=== PATIENT | female | born 1950 | race Caucasian/White ===

== ENCOUNTER 2018-02-28 05:33 | Day surgery (SDC) | payer MEDICARE, OTHER ==
[2018-02-27 18:12] VITALS: BMI 32.1
[2018-02-28] MEDS ORDERED: Lidocaine 1% (PF) 30 ML VIAL ONE (06:39)
[2018-02-28 06:52] LABS: #Eosinphils 0.2 thou/uL (0.0-0.7); #Monocytes 0.4 thou/uL (0.11-0.59); #Neutrophils 3.4 thou/uL (1.40-6.50); %Basophils 0.7 % (0.0-1.0); %Eosinophils 3.3 % (0.0-10.0); %Lymphocytes 19.9 % (21.0-51.0); %Monocytes 7.6 % (0.0-10.0); %Neutrophils 68.4 % (42.0-75.0); Hemoglobin 12.7 g/dL (12.0-16.0); Mean Corpuscular HGB CONC 34.3 g/dL (32.0-36.0); Mean Corpuscular Hemoglobin 29.2 pg (27.0-31.0); Mean Corpuscular Volume 85.2 fl (81.0-99.0); Mean Platelet Volume 6.7 fL (7.4-10.4); Platelet Count 213 thou/uL (130-400); RBC Distribution Width 13.7 % (11.5-14.5); Red Blood Cell (RBC) Count 4.36 mill/uL (4.20-5.40)
[2018-02-28 07:13] LABS: Anion Gap 10 mmol/L (10-20); BUN (Urea Nitrogen) 17 mg/dL (9.8-20.1); Calc. Creatinine Clearance 108 mL/min (70-130); Calcium 10.6 mg/dL (7.8-10.44); Carbon Dioxide 29 mmol/L (23-31); Chloride 105 mmol/L (98-107); Estimated GFR-MDRD 79; Glucose 113 mg/dL (80-115); Potassium 4.1 mmol/L (3.5-5.1); Sodium 140 mmol/L (136-145)
[2018-02-28] MEDS ORDERED: Heparin 10,000 UNITS/1 ML VIAL ONE (08:21)
[2018-02-28] MEDS ORDERED: Protamine Sulfate 50 MG/5 ML VIAL ONE (08:24)
[2018-02-28] MEDS ORDERED: Clopidogrel Bisulfate 75 MG TAB ONE (09:14)
--- NOTE | 2018-03-01 09:18 | OP ---
DATE OF PROCEDURE: 02/28/2018 PREOPERATIVE DIAGNOSIS: Claudication of right hip. 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 PROCEDURE: Aortofemoral angiography, right lower extremity runoff, balloon angioplasty of both common iliac arteries 8 x 17 and Express stent, right common iliac artery. CONTRAST: 38 mL. FLUOROSCOPY TIME: 12.7 minutes. SURGEON: Osvaldo Kruse M.D. PROCEDURE IN DETAIL: After prepping and draping both groins, ultrasound guided puncture of the right common femoral artery was performed. A 10-St Helenian sheath and Contra catheter were placed. Angiography was obtained. Retrograde angiography was obtained and then angiography via contra catheter was obtained. Following this, left common femoral artery puncture with ultrasound guidance and placement of a long 6-St Helenian marker sheath was performed and the patient was heparinized. The right 5-St Helenian sheath was exchanged for a 6-St Helenian marker sheath over a Bentson wire, following which bilateral 8mm x 2 cm balloons were used to inflate the common iliac artery origins. Completion angiography still showed a suspicious area that was hazy on the right common iliac artery and the right-sided 6-St Helenian destination sheath was advanced into the stent in order to obtain better angiography; however, at that point the sheath could not be aspirated until it was pulled out of the stent. Following this, the 8 x 17 Express stent was advanced into the right common iliac artery stent and then inflated while a balloon was inflated on the left side. Completion angiography showed much improved result. Sheaths were then removed after protamine was used to reverse protamine MTDD
== END 2018-02-28 15:57 | disposition home or self-care (01) ==
LOC: CCL 05:33
PROVIDERS: ATTEND Thoracic Surgery (Cardiothoracic Vascular Surgery)
PROC: 047C34Z Dilation of Right Common Iliac Artery with Drug-eluting Intraluminal Device, Percutaneous Approach (ICD-10-PCS; principal; 2018-02-28)
DX: I70.211 Atherosclerosis of native arteries of extremities with intermittent claudication, right leg (principal); Z88.2 Allergy status to sulfonamides; Z88.5 Allergy status to narcotic agent; Z87.891 Personal history of nicotine dependence
CPT/HCPCS: 37221; 37222; 76942; 80048; 85025; 85347 ×2; C1725; C1769; C1876; 36415; J1644; J2001; J2720

== ENCOUNTER 2019-05-07 07:34 | Outpatient (CLI) | payer MEDICARE, OTHER ==
[2019-05-07 08:22] LABS: Estimated GFR-MDRD - POC Greater than 90
--- NOTE | 2019-05-07 09:06 | MRI ---
MRI Lower Ext Jt Rt W WO Con History: Evaluate for osteomyelitis. Wound. History of surgery. S 81.801 a Comparison: Ankle radiograph 2016. MRI 2016. Findings: Bones: Prior plate and screw fixation distal fibula screw tracks seen. Retrograde screws are present through the medial malleolus. No loss of marrow signal on T1-weighted imaging sequence. Trace edema within the lateral fibular bobby ex adjacent to a wound although the cortical integrity is maintained. Advanced degenerative changes of the fourth and fifth tarsometatarsal joints. No acute fracture. Small plantar calcaneal spur. Tendons: Achilles tendon is intact. Peroneal tendons are intact. Extensor and flexor tendons are inta ct. Soft tissues: There is a soft tissue wound the distal fibula with a small sinus tract abutting the co rtex of the distal fibula. This sinus tract from the skin to the fibular cortex is 4 mm in transverse by 2 mm in AP by 12 mm in craniocaudal dimension. Impression: Low-grade reactive osteitis of the lateral distal fibular cortex with adjacent soft tissu e wound. No osteomyelitis.
== END 2019-05-07 07:35 | disposition home or self-care (01) ==
LOC: MRI 07:34
PROVIDERS: ATTEND Internal Medicine Infectious Disease
DX: S81.801A Unspecified open wound, right lower leg, initial encounter (principal); M86.9 Osteomyelitis, unspecified
CPT/HCPCS: 82565

== ENCOUNTER 2019-05-12 11:49 | Outpatient (CLI) | payer MEDICARE, OTHER ==
--- NOTE | 2019-05-12 12:20 | RAD ---
Exam right toe 3 views HISTORY: Cellulitis FINDINGS: There is soft tissue swelling. There is mild bone demineralization involving the distal pha lanx. Early edematous change due to infection of the bone cannot be excluded. IMPRESSION: Soft tissue swelling suggesting cellulitis. Mild bony mineralization without erosion. Ear ly edema from an infection of the bone (osteomyelitis) cannot be excluded. Consider MRI.
== END 2019-05-12 11:50 | disposition home or self-care (01) ==
LOC: BICRAD 11:49
PROVIDERS: ATTEND Internal Medicine Infectious Disease
DX: L03.031 Cellulitis of right toe (principal); M79.89 Other specified soft tissue disorders; M81.0 Age-related osteoporosis without current pathological fracture

== ENCOUNTER → 2019-05-15 | Day surgery (SDC) | payer MEDICARE, OTHER ==
[~2019-05-15] MED LIST: Heparin 1,000 UNITS/ML VIAL ONE
--- NOTE | 2019-05-15 15:15 | SPC ---
Sonographic guided left upper extremity PICC HISTORY: Foot infection. FINDINGS: After explaining the procedure and answering all questions, the left upper extremity was pr epped and draped in usual sterile fashion. Sterile technique, buffered local anesthesia, sonographic guidance, and a 22-gauge needle were used to carefully access the left cephalic vein. Sta ndard technique was used to place the tip of a 5 Lao single lumen PICC so that the tip lies at the level of the right atrium. Catheter was flushed and secured externally. Patient tolerated the pro cedure well and was dismissed in good condition. Fluoroscopy time 0 seconds. IMPRESSION: Left upper extremity PICC is ready for use. Transcribed Date/Time: 05/15/2019 3:35 PM
== END ==
LOC: SPEC 07:37
PROVIDERS: ATTEND Internal Medicine Infectious Disease
DX: L08.9 Local infection of the skin and subcutaneous tissue, unspecified (principal)
CPT/HCPCS: 36569; C1751

== ENCOUNTER 2019-05-22 08:56 | Outpatient (CLI) | payer MEDICARE, OTHER ==
--- NOTE | 2019-05-22 11:03 | HP ---
HISTORY OF PRESENT ILLNESS: Ms. Princess Gonzales is a very pleasant 68-year-old, who presents to the [facility] for evaluation of an ulceration over the right lateral ankle in addition to an ulceration over the dorsum of the right great toe. The patient was last seen in the Wound Center on 02/07/2016 for evaluation of a nonhealing surgical wound of the right lateral ankle in the region of the malleolus. On 02/28/2018 for right hip claudication, the patient underwent percutaneous revascularization of the right and left lower extremities including balloon angioplasty of both common iliac arteries and Express stent placement of the right common iliac artery by Dr. Osvaldo Kruse. The patient states that she was seen by Dr. Kruse on 04/29/2019 and told that her circulation was adequate for the healing of her right lateral ankle wound, which had developed in late March or early April of this year. The patient states that the wound open spontaneously. She states that she began treating the wound with Aquaphor. At a scheduled appointment with Podiatry, the patient was referred by Dr. Sorto to Dr. Kruse. After being seen by Dr. Kruse, the patient was referred to Dr. Vang. The patient states that she was seen by Dr. Vang on 05/05/2019. She states that 3 to 4 days later she noted the presence of a small blister over the dorsum of the right great toe, possibly secondary to an ant bite. She states that she popped the blister and the wound markedly worsened in its appearance. The patient states she has been treating the wound over the dorsum of the right great toe also with Aquaphor. Ms. Gonzales has been receiving Invanz and daptomycin as per Dr. Vang since 05/15/2019. PAST MEDICAL HISTORY: 1. Rheumatoid arthritis. 2. Lupus. 3. Raynaud's. PAST SURGICAL HISTORY: 1. Right breast lumpectomy/right axillary sentinel lymph node biopsy 04/07/2011. 2. ORIF of right ankle. 3. Bilateral tubal ligation. 4. Hysterectomy. MEDICATIONS: 1. Plavix. 2. Omeprazole. 3. Prednisone. 4. Methotrexate. 5. Norvasc. 6. Pravastatin. 7. Coenzyme Q10. 8. Multivitamin. 9. Citracal. 10. Krill oil. 11. Turmeric. ALLERGIES: SULFA, OXYCODONE, AND HYDROCODONE. SOCIAL HISTORY: Significant for tobacco use of up to 1-1/2 packs of cigarettes per day for 20 years. The patient states that she stopped smoking in March of 1992. The patient admits to the occasional use of alcohol since her teenage years. She states that she has not consumed any alcohol since 2010. FAMILY HISTORY: Family history is negative for diabetes mellitus or coronary artery disease. PHYSICAL EXAMINATION: VITAL SIGNS: Temperature 98.4, pulse 79, respirations 18, and blood pressure 168/96. GENERAL: A 68-year-old female, sitting on table in examination room, in no acute distress. HEENT: Normocephalic, atraumatic. NECK: No nuchal rigidity. CHEST: Clear to auscultation. CARDIOVASCULAR: Regular rate and rhythm. ABDOMEN: Soft. EXTREMITIES: An ulceration over the right lateral ankle is present, which measures approximately 2.8 x 1.8 cm. An ulceration over the dorsum of the right great toe is present, which measures approximately 1.1 x 2.0 cm. No purulent drainage is associated with either wound. No cellulitis of the right ankle or right great toe is appreciated. No maceration of the skin of the periwound of either wound is noted. A dorsalis pedis pulse is faintly palpable on the right. A posterior tibial pulse is also palpable on the right. No significant edema of the right foot or lower extremity is appreciated on exam today. NEURO: Grossly nonfocal. ASSESSMENT AND PLAN: 1. Ulcerations of right lower extremity as described above. Dressing changes of Medihoney, 4 x 4's, and Kerlix will be initiated today. These dressing changes are to be performed on a daily basis after cleansing and irrigation. I will see Ms. Gonzales again in 1 week. The patient will be performing her own dressing changes. As stated above, the patient is receiving Invanz and daptomycin as per Infectious Diseases. The patient understands and is in agreement with the preceding treatment plan. 2. Rheumatoid arthritis. 3. Lupus. 4. Raynaud's. Job ID: [id number]
== END 2019-05-22 08:57 | disposition home or self-care (01) ==
LOC: WCC 08:56
PROVIDERS: ATTEND Family Medicine
DX: L03.031 Cellulitis of right toe (principal)

== ENCOUNTER 2019-05-28 08:35 | Outpatient (CLI) | payer MEDICARE, OTHER ==
[2019-05-28] MEDS ORDERED: Sodium Chloride 0.9% 15 ML NEB ONE (09:00)
[2019-05-28] MEDS ORDERED: Lidocaine 2% PF 100 mg/5 ml Syringe ONE (09:00)
--- NOTE | 2019-05-28 16:31 | PRG ---
DATE OF SERVICE: 05/28/2019 HISTORY: Ms. Princess Gonzales is a very pleasant 68-year-old, who presents to the [facility]ound Center for evaluation of an ulceration over the right lateral ankle in addition to an ulceration over the dorsum of the right great toe. The patient was previously seen in the Wound Center on 02/07/2016 for evaluation of a nonhealing surgical wound of the right lateral ankle in the region of the malleolus. On 02/28/2018 for right hip claudication, the patient underwent percutaneous revascularization of the right and left lower extremities including balloon angioplasty of both common iliac arteries and Express stent placement of the right common iliac artery by Dr. Osvaldo Kruse. The patient stated that she was seen by Dr. Kruse on 04/29/2019 and told that her circulation was adequate for the healing of her right lateral ankle wound, which had developed in late March or early April of this year. The patient stated that the wound opened spontaneously. She stated that she began treating the wound with Aquaphor. At a scheduled appointment with Podiatry, the patient was referred by Dr. Sorto to Dr. Kruse. After being seen by Dr. Kruse, the patient was referred to Dr. Vang. The patient stated that she was seen by Dr. Vang on 05/05/2019. She stated that 3 to 4 days later, she noted the presence of a small blister over the dorsum of the right great toe, possibly secondary to an ant bite. She stated that she popped a blister and the wound markedly worsened in its appearance. The patient stated that she had been treating the wound over the dorsum of the right great toe also with Aquaphor prior to being seen in the Wound Center. Ms. Gonzales has been receiving Invanz and daptomycin as per Dr. Vang since 05/15/2019. After being seen in the Wound Center, the patient was placed on dressing changes of Medihoney for both wounds of the right lower extremity. PHYSICAL EXAMINATION: VITAL SIGNS: Temperature 97.6, pulse 71, respirations 18, and blood pressure 180/77. EXTREMITIES: An ulceration over the right lateral ankle is present, which measures approximately 2.9 x 0.8 cm. The dimensions of the wound at the time of the patient's last visit were approximately 2.8 x 1.8 cm. An ulceration over the dorsum of the right great toe was present, which measures approximately 1.0 x 1.6 cm. The dimensions of the wound at the time of the patient's last visit were approximately 1.1 x 2.0 cm. No purulent drainage is associated with either wound. No cellulitis of the right ankle or right great toe is appreciated. No maceration of the skin of the periwound of either wound is noted. No significant edema of the right foot or lower extremity is appreciated on exam today. ASSESSMENT AND PLAN: 1. Ulcerations of right lower extremity as described above. Dressing changes of Medihoney, 4x4s, and Kerlix will be continued on a daily basis after cleansing and irrigation. I will see Ms. Gonzales again in 1 week. The patient will continue to perform her own dressing changes. As stated above, the patient is receiving Invanz and daptomycin as per Infectious Diseases. The patient states that her course of IV antibiotics has been lengthened recently by Dr. Vang. 2. Rheumatoid arthritis. 3. Lupus. 4. Raynaud's. Job ID: [id number]
== END 2019-05-28 08:36 | disposition home or self-care (01) ==
LOC: WCC 08:35
PROVIDERS: ATTEND Family Medicine
DX: L97.519 Non-pressure chronic ulcer of other part of right foot with unspecified severity (principal)
CPT/HCPCS: 97602; A4218; J2001

== ENCOUNTER 2019-06-04 09:21 | Outpatient (CLI) | payer MEDICARE, OTHER ==
--- NOTE | 2019-06-04 10:04 | PRG ---
DATE OF SERVICE: 06/04/2019 SUBJECTIVE: Ms. Princess Gonzales is a very pleasant 68-year-old, who presents to the Wound Center for evaluation of an ulceration over the right lateral ankle in addition to an ulceration over the dorsum of the right great toe. The patient was previously seen in the Wound Center on 02/07/2016 for evaluation of a nonhealing surgical wound of the right lateral ankle in the region of the malleolus. On 02/28/2018, for right hip claudication, the patient underwent percutaneous revascularization of the right and left lower extremities including balloon angioplasty of both common iliac arteries and Express stent placement of the right common iliac artery by Dr. Osvaldo Kruse. The patient stated that she was seen by Dr. Kruse on 04/29/2019, and told that her circulation was adequate for the healing of her right lateral ankle wound, which had developed in late March or early April of this year. The patient stated that the wound opened spontaneously. She stated that she began treating the wound with Aquaphor. At a scheduled appointment with Podiatry, the patient was referred by Dr. Sorto to Dr. Kruse. After being seen by Dr. Kruse, the patient was referred to Dr. Vang. The patient stated that she was seen by Dr. Vang on 05/05/2019. She stated that 3 to 4 days later, she noted the presence of a small blister over the dorsum of the right great toe, possibly secondary to an ant bite. She stated that she popped a blister and the wound markedly worsened in its appearance. The patient stated that she had been treating the wound over the dorsum of the right great toe also with Aquaphor prior to being seen at the Wound Center. Ms. Gonzales has been receiving Invanz and daptomycin as per Dr. Vang since 05/15/2019. After being seen in the Wound Center, the patient was placed on dressing changes of Medihoney for both wounds of the right lower extremity. PHYSICAL EXAMINATION: VITAL SIGNS: Temperature 97.5, pulse 67, respirations 18, blood pressure 191/79. EXTREMITIES: An ulceration over the right lateral ankle is present, which measures approximately 3.0 x 0.8 cm. An ulceration over the dorsum of the right great toe is present, which measures approximately 1.0 x 1.3 cm. The dimensions of the wound at the time of the patient's last visit were approximately 1.0 x 1.6 cm. No purulent drainage is associated with either wound. No cellulitis of the right ankle or right great toe is appreciated. No maceration of the skin of the periwound of either wound is noted. No significant edema of the right foot or lower extremity is present on exam today. ASSESSMENT AND PLAN: 1. Ulcerations of right lower extremity as described above. Dressing changes of Medihoney, 4x4s, and Coban will be continued on a daily basis after cleansing and irrigation. I will see Ms. Gonzales again in 1 week. The patient will continue to perform her own dressing changes. As stated above, the patient is receiving Invanz and daptomycin as per Infectious Diseases. The patient states she will be receiving IV antibiotics for a total of 4 weeks. 2. Rheumatoid arthritis. 3. Lupus. 4. Raynaud's. Job ID: [id number]
[2019-06-04] MEDS ORDERED: Sodium Chloride 0.9% 15 ML NEB ONE (23:55)
[2019-06-04] MEDS ORDERED: Lidocaine 2% PF 100 mg/5 ml Syringe ONE (23:55)
== END 2019-06-04 09:22 | disposition home or self-care (01) ==
LOC: WCC 09:21
PROVIDERS: ATTEND Family Medicine
DX: L97.519 Non-pressure chronic ulcer of other part of right foot with unspecified severity (principal); M06.9 Rheumatoid arthritis, unspecified; M32.9 Systemic lupus erythematosus, unspecified; I73.00 Raynaud's syndrome without gangrene
CPT/HCPCS: 97602; A4218; J2001

== ENCOUNTER 2019-06-06 11:49 | Outpatient (CLI) | payer MEDICARE, OTHER ==
--- NOTE | 2019-06-06 12:12 | RAD ---
XR Foot Rt 2 View History: Osteomyelitis Comparison: Ankle radiographs 2016 Findings: Moderate narrowing of the great toe metatarsal phalangeal joint. 2 retrograde medial malleo lar screws are present. Small plantar calcaneal spur. The bones are mildly demineralized. Mild demineralization of the tuft distal phalanx second toe. Soft tissue swelling around the great to e distal phalanx. Impression: No definite radiographic evidence of osteomyelitis. If clinically warranted, MRI recommen ded.
== END 2019-06-06 11:50 | disposition home or self-care (01) ==
LOC: BICRAD 11:49
PROVIDERS: ATTEND Internal Medicine Infectious Disease
DX: L03.031 Cellulitis of right toe (principal)

== ENCOUNTER 2019-06-18 15:56 | Outpatient (CLI) | payer MEDICARE, OTHER ==
--- NOTE | 2019-06-18 10:23 | PRG ---
DATE OF SERVICE: 06/18/2019 HISTORY: Ms. Princess Gonzales is a very pleasant 69-year-old, who presents to the Wound Center for evaluation of an ulceration over the right lateral ankle in addition to an ulceration over the dorsum of the right great toe. The patient stated that she was seen by Dr. Kruse on 04/29/2019 and told that her circulation was adequate for the healing of her right lateral ankle wound, which had developed in late March or early April of this year. The patient stated that the wound opened spontaneously. She stated that she began treating the wound with Aquaphor. At a scheduled appointment with Podiatry, the patient was referred by Dr. Sorto to Dr. Kruse. After being seen by Dr. Kruse, the patient was referred to Dr. Vang. The patient stated that she was seen by Dr. Vang on 05/05/2019. She stated that 3 to 4 days later, she noted the presence of a small blister over the dorsum of the right great toe, possibly secondary to an ant bite. She stated that she popped the blister and the wound markedly worsened in its appearance. The patient stated that she had been treating the wound over the dorsum of the right great toe also with Aquaphor prior to being seen in the Wound Center. The patient has received Invanz and daptomycin as per Dr. Vang. The patient states she is now taking 30 days of p.o. antibiotics as per Infectious Diseases. After being seen in the Wound Center, the patient was placed on dressing changes of Medihoney for both wounds of the right lower extremity. PHYSICAL EXAMINATION: VITAL SIGNS: Temperature 98.3, pulse 83, respirations 21, blood pressure 193/75. Accu-Chek 162. EXTREMITIES: An ulceration over the right lateral ankle is present, which measures approximately 2.9 x 0.9 cm. The dimensions of the wound at the time of the patient's last visit were approximately 2.8 x 0.8 cm. An ulceration over the dorsum of the right great toe is present, which measures approximately 1.1 x 0.8 cm. The dimensions of the wound at the time of the patient's last visit were approximately 1.0 x 0.8 cm. Granulation tissue is present within the margins of each wound. No purulent drainage is associated with either wound. No cellulitis of the right ankle or right great toe is appreciated. No maceration of the skin of the periwound of either wound is noted. No significant edema of the right foot or lower extremity is present on today's exam. ASSESSMENT AND PLAN: 1. Ulcerations of right lower extremity as described above. Dressing changes of Medihoney, 4x4s, and Coban will be continued on a daily basis after cleansing and irrigation. I will see Ms. Gonzales again in 2 weeks. The patient will continue to perform her own dressing changes. If the dimensions of the wound fail to decrease significantly over the next 2 weeks, consideration will be given to a trial of Multidex powder or Santyl. The patient understands and is in agreement with the preceding treatment plan. 2. Rheumatoid arthritis. 3. Lupus. 4. Raynaud's. Job ID: [id number]
[~2019-06-18 15:56] MED LIST changes: -Heparin 1,000 UNITS/ML VIAL ONE; +Lidocaine 2% PF 100 mg/5 ml Syringe ONE; +Sodium Chloride 0.9% 15 ML NEB ONE
== END 2019-06-18 15:57 | disposition home or self-care (01) ==
LOC: WCC 15:56
PROVIDERS: ATTEND Family Medicine
DX: L97.319 Non-pressure chronic ulcer of right ankle with unspecified severity (principal); M06.9 Rheumatoid arthritis, unspecified; M32.9 Systemic lupus erythematosus, unspecified; I73.00 Raynaud's syndrome without gangrene
CPT/HCPCS: 36416; A4218; J2001

== ENCOUNTER 2019-07-02 08:47 | Outpatient (CLI) | payer MEDICARE, OTHER ==
[2019-07-02] MEDS ORDERED: Sodium Chloride 0.9% 15 ML NEB ONE (09:00)
--- NOTE | 2019-07-02 10:19 | PRG ---
DATE OF SERVICE: 07/02/2019 HISTORY: Ms. Princess Gonzales is a very pleasant 69-year-old, who presents to the Wound Center for evaluation of an ulceration over the right lateral ankle in addition to an ulceration over the dorsum of the right great toe. The patient stated that she was seen by Dr. Kruse on 04/29/2019 and told that her circulation was adequate for the healing of her right lateral ankle wound, which had developed in late March or early April of this year. The patient stated that the wound opened spontaneously. She stated that she began treating the wound with Aquaphor. At a scheduled appointment with Podiatry, the patient was referred by Dr. Sorto to Dr. Kruse. After being seen by Dr. Kruse, the patient was referred to Dr. Vang. The patient stated that she was seen by Dr. Vang on 05/05/2019. She stated that 3 to 4 days later, she noted the presence of a small blister over the dorsum of the right great toe, possibly secondary to an ant bite. She stated that she popped the blister and the wound markedly worsened in its appearance. The patient stated that she had been treating the wound over the dorsum of the right great toe also with Aquaphor prior to being seen in the Wound Center. The patient has received Invanz and daptomycin as per Dr. Vang. The patient was subsequently placed on 30 days of p.o. antibiotics by Infectious Diseases. After being seen in the Wound Center, the patient was placed on dressing changes of Medihoney for both wounds of the right lower extremity. PHYSICAL EXAMINATION: VITAL SIGNS: Temperature 98.2, pulse 77, respirations 20, and blood pressure 148/70. EXTREMITIES: An ulceration over the right lateral ankle is present, which measures approximately 2.3 x 0.5 cm. The dimensions of the wound at the time of the patient's last visit were approximately 2.9 x 0.9 cm. An ulceration over the dorsum of the right great toe is present, which measures approximately 0.5 x 0.5 cm. Granulation tissue is present within the margins of each wound. No purulent drainage is associated with either wound. No cellulitis of the right ankle or right great toe is appreciated. No maceration of the skin of the periwound of either wound is noted. No significant edema of the right foot or lower extremity is present on exam today. ASSESSMENT AND PLAN: 1. Ulcerations of right lower extremity as described above. Dressing changes of Medihoney, 4x4s, and Coban will be continued on a daily basis after cleansing and irrigation. I will see Ms. Gonzales again in 2 weeks. The patient will continue to perform her own dressing changes. 2. Rheumatoid arthritis. 3. Lupus. 4. Raynaud's. Job ID: [id number]
== END 2019-07-02 08:48 | disposition home or self-care (01) ==
LOC: WCC 08:47
PROVIDERS: ATTEND Family Medicine
DX: L97.919 Non-pressure chronic ulcer of unspecified part of right lower leg with unspecified severity (principal); M06.9 Rheumatoid arthritis, unspecified; M32.9 Systemic lupus erythematosus, unspecified; I73.00 Raynaud's syndrome without gangrene
CPT/HCPCS: A4218

== ENCOUNTER 2019-07-16 09:46 | Outpatient (CLI) | payer MEDICARE, OTHER ==
--- NOTE | 2019-07-16 13:31 | PRG ---
DATE OF SERVICE: 07/16/2019 HISTORY: Ms. Princess Gonzales is a very pleasant 69-year-old, who presents to the Wound Center for evaluation of an ulceration over the right lateral ankle in addition to an ulceration over the dorsum of the right great toe. The patient stated that she was seen by Dr. Kruse on 04/29/2019 and told that her circulation was adequate for the healing of her right lateral ankle wound, which had developed in late March or early April of this year. The patient stated that the wound opened spontaneously. She stated that she began treating the wound with Aquaphor. At a scheduled appointment with Podiatry, the patient was referred by Dr. Sorto to Dr. Kruse. After being seen by Dr. Kruse, the patient was referred to Dr. Vang. The patient stated that she was seen by Dr. Vang on 05/05/2019. She stated that 3 to 4 days later she noted the presence of a small blister over the dorsum of the right great toe, possibly secondary to an ant bite. She stated that she popped the blister and the wound markedly worsened in its appearance. The patient stated that she had been treating the wound over the dorsum of the right great toe also with Aquaphor prior to being seen in the Wound Center. The patient has received Invanz and daptomycin as per Dr. Vang. The patient was subsequently placed on 30 days of p.o. antibiotics by Infectious Diseases. After being seen in the Wound Center, the patient was placed on dressing changes of Medihoney for both wounds of the right lower extremity. The patient states that her next visit with Dr. Vang will be in approximately 4 weeks and that laboratory studies have been ordered prior to her visit with Dr. Vang. OBJECTIVE: VITAL SIGNS: Temperature 97.7, pulse 75, respirations 22, and blood pressure 168/73. EXTREMITIES: An ulceration over the right lateral ankle is present, which measures approximately 2.3 x 0.5 cm. The dimensions of the wound at the time of the patient's last visit were approximately 2.3 x 0.5 cm also. The ulceration over the dorsum of the right great toe has healed completely. Granulation tissue is present within the margins of the right lateral ankle wound. No purulent drainage is associated with the wound. No cellulitis of the right foot or ankle is appreciated. No maceration of the skin of the periwound of the right lateral ankle wound is present. No significant edema of the right foot or lower extremity is present on exam today. ASSESSMENT AND PLAN: 1. Right lateral ankle ulceration as described above. Dressing changes of Santyl will be initiated today. These dressing changes are to be performed on a daily basis after cleansing and irrigation. Arrangements will be made for the home delivery of Santyl. I will see Ms. Gonzales again in 2 weeks. The patient will continue to perform her own dressing changes. 2. Rheumatoid arthritis. 3. Lupus. 4. Raynaud's. Job ID: [id number]
[2019-07-16] MEDS ORDERED: Sodium Chloride 0.9% 15 ML NEB ONE (15:00)
[2019-07-16] MEDS ORDERED: Lidocaine 2% Jelly 5 ML TUBE ONE (15:00)
== END 2019-07-16 09:47 | disposition home or self-care (01) ==
LOC: WCC 09:46
PROVIDERS: ATTEND Family Medicine
DX: L97.319 Non-pressure chronic ulcer of right ankle with unspecified severity (principal); M32.9 Systemic lupus erythematosus, unspecified; M06.9 Rheumatoid arthritis, unspecified; I73.00 Raynaud's syndrome without gangrene
CPT/HCPCS: A4218

== ENCOUNTER 2019-08-07 10:40 | Outpatient (CLI) | payer MEDICARE, OTHER ==
--- NOTE | 2019-08-07 11:15 | RAD ---
Exam: XR Ankle Rt 2 View HISTORY: Nonpressure chronic ulcer lateral ankle. COMPARISON: 03/14/2016 FINDINGS: Postsurgical changes of the medial malleolus are seen with 2 screws transfixing the medial malleolus. Lucencies within the distal fibula are again seen likely related to site of prior hardware. The ankle mortise is congruent. Tiny osseous density is seen inferior to the medial malleolus which may r epresent a small remote avulsion injury. This was also present on prior exam. A plantar calcaneal enthesophyte is seen. Minimal degenerative changes are seen at the tibiotalar joint. No osseous destr uction is seen. No acute fracture, dislocation, or other acute osseous abnormality is identified. IMPRESSION: No acute osseous abnormality is identified.
== END 2019-08-07 10:41 | disposition home or self-care (01) ==
LOC: BICRAD 10:40
PROVIDERS: ATTEND Internal Medicine Infectious Disease
DX: L97.519 Non-pressure chronic ulcer of other part of right foot with unspecified severity (principal)

== ENCOUNTER 2019-08-07 10:56 | Outpatient (CLI) | payer MEDICARE, OTHER ==
--- NOTE | 2019-08-07 12:21 | PRG ---
DATE OF SERVICE: 08/07/2019 HISTORY: Ms. Princess Gonzales is a very pleasant 69-year-old, who presents to the [facility] Center for evaluation of an ulceration over the right lateral ankle in addition to an ulceration over the dorsum of the right great toe. The patient stated that she was seen by Dr. Kruse on 04/29/2019 and told that her circulation was adequate for the healing of her right lateral ankle wound which had developed in late March or early April of this year. The patient stated that the wound opened spontaneously. She stated that she began treating the wound with Aquaphor. At a scheduled appointment with Podiatry, the patient was referred by Dr. Sorto to Dr. Kruse. After being seen by Dr. Kruse, the patient was referred to Dr. Vang. The patient stated that she was seen by Dr. Vang on 05/05/2019. She stated that 3 to 4 days later, she noted the presence of a small blister over the dorsum of the right great toe, possibly secondary to an ant bite. She stated that she popped the blister in the wound markedly worsened in its appearance. The patient stated that she had been treating the wound over the dorsum of the right great toe also with Aquaphor prior to being seen in the Wound Center. The patient has received Invanz and daptomycin as per Dr. Vang. The patient was subsequently placed on 30 days of p.o. antibiotics by Infectious Diseases. After being seen in the Wound Center, the patient was placed on dressing changes of Medihoney for both wounds of the right lower extremity. The patient states that she has a followup appointment with Dr. Vang next week and that laboratory studies have been ordered prior to her visit with Dr. Vang. PHYSICAL EXAMINATION: VITAL SIGNS: Temperature 97.9, pulse 91, respirations 20, blood pressure 165/70. EXTREMITIES: An ulceration over the right lateral ankle is present, which measures approximately 1.6 x 0.4 cm. The dimensions of the wound at the time of the patient's visit on 07/16/2019 were approximately 2.3 x 0.5 cm. The ulceration over the dorsum of the right great toe has healed completely and remains healed. Granulation tissue is present within the margins of the right lateral ankle wound. No purulent drainage is associated with the wound. No cellulitis of the right foot or ankle is appreciated. No maceration of the skin of the periwound of the right ankle wound is noted. No significant edema of the right foot or lower extremity is present on exam today. ASSESSMENT AND PLAN: 1. Right lateral ankle ulceration as described above. Dressing changes of Jonnie will be continued on a daily basis after cleansing and irrigation. The patient will continue to perform her own dressing changes. I will see Ms. Gonzales again in 2 weeks. The patient has declined treatment with Santyl. 2. Rheumatoid arthritis. 3. Lupus. 4. Raynaud's. Job ID: [id number]
[2019-08-07] MEDS ORDERED: Sodium Chloride 0.9% 15 ML NEB ONE (15:00)
[2019-08-07] MEDS ORDERED: Lidocaine 2% PF 100 mg/5 ml Syringe ONE (15:00)
== END 2019-08-07 10:57 | disposition home or self-care (01) ==
LOC: WCC 10:56
PROVIDERS: ATTEND Family Medicine
DX: L97.319 Non-pressure chronic ulcer of right ankle with unspecified severity (principal); M06.9 Rheumatoid arthritis, unspecified; M32.9 Systemic lupus erythematosus, unspecified; I73.00 Raynaud's syndrome without gangrene
CPT/HCPCS: 97602; A4218; J2001

== ENCOUNTER 2019-08-21 15:07 | Outpatient (CLI) | payer MEDICARE, OTHER ==
[2019-08-21] MEDS ORDERED: Sodium Chloride 0.9% 15 ML NEB ONE (16:37)
[2019-08-21] MEDS ORDERED: Lidocaine 2% PF 100 mg/5 ml Syringe ONE (16:37)
--- NOTE | 2019-08-21 16:37 | PRG ---
DATE OF SERVICE: 08/21/2019 SUBJECTIVE: Ms. Princess Gonzales is a very pleasant 69-year-old, who presents to the Wound Center for evaluation of an ulceration over the right lateral ankle. The patient stated that she was seen by Dr. Kruse on 04/29/2019 and told that her circulation was adequate for the healing of her right lateral ankle wound, which had developed in late March or early April of this year. The patient stated that the wound opened spontaneously. She stated that she began treating the wound with Aquaphor. At a scheduled appointment with Podiatry, the patient was referred by Dr. Sorto to Dr. Kruse. After being seen by Dr. Kruse, the patient was referred to Dr. Vang. The patient stated that she was seen by Dr. Vang on 05/05/2019. The patient has received Invanz and daptomycin as per Dr. Vang. The patient was subsequently placed on 30 days of p.o. antibiotics by Infectious Diseases. After being seen in the Wound Center, the patient was placed on dressing changes of Medihoney. Today, the patient states that she has had her last followup appointment with Dr. Vang and has been discharged by Infectious Diseases. OBJECTIVE: VITAL SIGNS: Temperature 97.7, pulse 97, respirations 20, blood pressure 141/87. EXTREMITIES: An ulceration over the right lateral ankle is present, which measures approximately 1.5 x 0.5 cm. The dimensions of the wound at the time of the patient's visit on 08/07/2019 were approximately 1.6 x 0.4 cm. Granulation tissue is present within the margins of the right lateral ankle wound. No purulent drainage is associated with the wound. No cellulitis of the right foot or ankle is appreciated. No maceration of the skin of the periwound of the right ankle wound is noted. No significant edema of the right foot or lower extremity is present on exam today. ASSESSMENT AND PLAN: 1. Right lateral ankle ulceration as described above. Dressing changes of Medihoney will be continued on a daily basis after cleansing and irrigation. The patient will continue to perform her own dressing changes. I will see Ms. Gonzales again in 2 weeks. As stated above, the patient has been discharged by Infectious Diseases. 2. Rheumatoid arthritis. 3. Lupus. 4. Raynaud's. Job ID: [id number]
== END 2019-08-21 15:08 | disposition home or self-care (01) ==
LOC: WCC 15:07
PROVIDERS: ATTEND Family Medicine
DX: L97.319 Non-pressure chronic ulcer of right ankle with unspecified severity (principal); M06.9 Rheumatoid arthritis, unspecified; M32.9 Systemic lupus erythematosus, unspecified; I73.00 Raynaud's syndrome without gangrene
CPT/HCPCS: 97602; A4218; J2001

== ENCOUNTER 2019-09-04 10:18 | Outpatient (CLI) | payer MEDICARE, OTHER ==
--- NOTE | 2019-09-04 13:06 | PRG ---
DATE OF SERVICE: 09/04/2019 HISTORY: Ms. Princess Gonzales is a very pleasant 69 years old, who presents to the Wound Center for evaluation of an ulceration over the right lateral ankle. The patient stated that she was seen by Dr. Kruse on 04/29/2019 and told that her circulation was adequate for the healing of her right lateral ankle wound, which had developed in late March or early April of this year. The patient stated that the wound opened spontaneously. She stated that she began treating the wound with Aquaphor at a scheduled appointment with Podiatry, the patient was referred by Dr. Sorto to Dr. Kruse. After being seen by Dr. Kruse, the patient was referred to Dr. Vang. The patient stated that she was seen by Dr. Vang on 05/05/2019. The patient has received Invanz and daptomycin as per Dr. Vang. The patient was subsequently placed on 30 days of p.o. antibiotics by Infectious Diseases. After being seen in the Wound Center, the patient was placed on dressing changes of [facility]. At the time of the patient's last visit on 08/21/2019, Ms. Gonzales stated that she had her last followup appointment with Dr. Vang and had been discharged by Infectious Diseases. OBJECTIVE: VITAL SIGNS: Temperature 97.6, pulse 90, respirations 19, and blood pressure 159/93. EXTREMITIES: An ulceration over the right lateral ankle is present, which measures approximately 1.0 x 0.5 cm. Eschar covers the entire wound bed. No purulent drainage is associated with the wound. No cellulitis of the right foot or ankle is appreciated. No maceration of the skin of the periwound is noted. No significant edema of the right foot or lower extremity is present on exam today. ASSESSMENT AND PLAN: 1. Right lateral ankle ulceration, as described above. The wound has almost healed completely and Ms. Gonzales will be discharged from clinic today with followup on a p.r.n. basis. The patient has been instructed to keep her wound clean, dry, and covered until the wound has completely healed. The patient understands and is in agreement with the preceding treatment plan. 2. Rheumatoid arthritis. 3. Lupus. 4. Raynaud's. Job ID: [id number]
[2019-09-04] MEDS ORDERED: Sodium Chloride 0.9% 15 ML NEB ONE (16:25)
== END 2019-09-04 10:19 | disposition home or self-care (01) ==
LOC: WCC 10:18
PROVIDERS: ATTEND Family Medicine
DX: M06.9 Rheumatoid arthritis, unspecified (principal); M32.9 Systemic lupus erythematosus, unspecified; I73.00 Raynaud's syndrome without gangrene
CPT/HCPCS: 99213; A4218; G0463

== ENCOUNTER 2019-09-11 09:48 | Outpatient (CLI) | payer MEDICARE, OTHER ==
--- NOTE | 2019-09-11 11:19 | RAD ---
RIGHT ANKLE RADIOGRAPHS THREE VIEWS: 09/11/2019 PROVIDED CLINICAL HISTORY: Cellulitis. COMPARISON: 08/07/2019 FINDINGS: Postoperative changes involving the medial malleolus are redemonstrated without evidence for hardware loosening or migration. There is no evidence for fracture or other acute osseous abnormality. Alignm ent appears anatomic. Joint spaces appear preserved. Plantar calcaneal enthesophyte formation is note d. IMPRESSION: No evidence for an acute osseous abnormality or significant arthropathy. POS: [facility]
== END 2019-09-11 09:49 | disposition home or self-care (01) ==
LOC: BICRAD 09:48
PROVIDERS: ATTEND Family Medicine
DX: L03.115 Cellulitis of right lower limb (principal)

== ENCOUNTER 2019-09-11 13:18 | Outpatient (CLI) | payer MEDICARE, OTHER ==
--- NOTE | 2019-09-11 10:10 | PRG ---
DATE OF SERVICE: 09/11/2019 HISTORY: Ms. Princess Gonzales is a very pleasant 69-year-old, who presents to the Wound Center for evaluation of a wound of the right lateral ankle. The patient was last seen in the Wound Center on 09/04/2019. At this time, the patient was discharged from clinic with followup on an as-needed basis. At the time of the patient's last visit, the wound was noted to have almost healed completely. The patient has been performing dressing changes of [facility] for the right lateral ankle ulceration. The patient states that she began experiencing pain of her right lateral ankle and then noted erythema of the skin surrounding the wound. The patient has no other complaints today. She denies any fever or chills. PHYSICAL EXAMINATION: VITAL SIGNS: Temperature 97.8, pulse 80, respirations 18, blood pressure 191/80. EXTREMITIES: An ulceration of the right lateral ankle is present, which measures approximately 0.9 x 0.2 cm. No purulent drainage is associated with the wound. Erythema of the skin surrounding the wound is present. No maceration of the skin of the periwound is noted. No significant edema of the right foot or lower extremity is present on exam today. ASSESSMENT AND PLAN: 1. Right lateral ankle ulceration as described above. As stated above, although the wound appears to be healing without complications, the patient began experiencing pain of the right lateral ankle after her discharge from the wound center on 09/04/2019. At that time, the patient began experiencing pain of her right lateral ankle. She also noted erythema of the skin surrounding the wound. I have discussed the treatment plan with Dr. Adolfo Vang of Infectious Diseases. Plain films of the right ankle will be obtained today in addition to MRI with and without contrast. The patient has also been given a prescription for Keflex 500 p.o. #30 one p.o. t.i.d. x10 days. The patient will be contacted by Infectious Diseases in regard to the date and time of her appointment with Dr. Vang. The patient states she understands and is in agreement with the preceding treatment plan. 2. Rheumatoid arthritis. 3. Lupus. 4. Raynaud's. Job ID: [id number]
[~2019-09-11 13:18] MED LIST changes: -Lidocaine 2% PF 100 mg/5 ml Syringe ONE
== END 2019-09-11 13:19 | disposition home or self-care (01) ==
LOC: WCC 13:18
PROVIDERS: ATTEND Family Medicine
DX: L97.319 Non-pressure chronic ulcer of right ankle with unspecified severity (principal); M06.9 Rheumatoid arthritis, unspecified; M32.9 Systemic lupus erythematosus, unspecified; I73.00 Raynaud's syndrome without gangrene
CPT/HCPCS: 97602; A4218

== ENCOUNTER 2019-09-19 11:50 | Outpatient (CLI) | payer MEDICARE, OTHER ==
[2019-09-19 13:05] LABS: Estimated GFR-MDRD - POC Greater than 90
--- NOTE | 2019-09-19 14:08 | MRI ---
MR of the right ankle with and without IV contrast HISTORY: Cellulitis of the right lower extremity COMPARISON: Right ankle radiograph dated 09/11/2019 and an MR of the right ankle dated May 07, 2019 Contrast: 17 cc of MultiHance FINDINGS: Susceptibility artifact from postoperative change involving the distal malleolus as well as the medial malleolus is again seen. There is a ulceration overlying the lateral aspect of the lateral malleolus measuring up to 8 mm in its greatest AP dimension. There are edematous changes seen within the subcutaneous tissues overlying the lateral ankle and and lateral foreleg. There is mild enhancement of the soft tissues of the lateral ankle, lateral foreleg and lateral hindfoot consistent with changes of cellulitis. No drainable fluid collection is evident. There are no overt changes to suggest presence of osteomyelitis. The degree of osteitis involving the lateral malleolus seen on the prior MR examination has lessened. Mild amount of residual marrow edema of , near the ulceration site, remains along the anterior lateral aspect of the lateral malleolus image 28 series 8 without appreciable enhancement. IMPRESSION: 1. Lateral ankle and lateral left foreleg cellulitis with an ulceration overlying the lateral malleol us. No drainable fluid collection is evident. 2. The mild osteitis involving the lateral malleolus, underlying the lateral ankle ulceration, is les s prominent. There is no overt changes to suggest presence of active osteomyelitis.
[2019-09-19] MEDS ORDERED: Magnevist 469MG/ML 20 ML VIAL ONE (15:51)
== END 2019-09-19 11:51 | disposition home or self-care (01) ==
LOC: BICMRI 11:50
PROVIDERS: ATTEND Family Medicine
DX: L03.115 Cellulitis of right lower limb (principal); T14.8XXD Other injury of unspecified body region, subsequent encounter
CPT/HCPCS: 82565; A9579

== ENCOUNTER 2019-09-25 08:22 | Outpatient (CLI) | payer MEDICARE, OTHER ==
--- NOTE | 2019-09-25 09:52 | PRG ---
DATE OF SERVICE: 09/25/2019 HISTORY: Ms. Princess Gonzales is a very pleasant 69-year-old, who presents to the Wound Center for evaluation of a wound of the right ankle. Presently, the patient is performing dressing changes of Medihoney for the ulceration of her right lateral ankle. MRI of the right lower extremity with and without contrast was obtained, which revealed mild osteitis involving the lateral malleolus, less prominent than on the previous MR of the right ankle from 05/07/2019. No changes suggesting the presence of active osteomyelitis were noted. The patient states that after MRI was obtained, she was seen by Dr. Vang, who recommended continuation of the wound care. PHYSICAL EXAMINATION: VITAL SIGNS: Temperature 98, pulse 87, respirations 18, and blood pressure 131/97. EXTREMITIES: An ulceration of the right lateral ankle is present, which measures approximately 1.8 x 0.4 cm. Granulation tissue is present within the wound margins. No purulent drainage is associated with the wound. Erythema of the skin surrounding the wound is present. No maceration of the skin of the periwound is noted. No significant edema of the right foot or lower extremity is present on exam today. ASSESSMENT AND PLAN: 1. Right lateral ankle ulceration as described above. Dressing changes of Medihoney will be discontinued. Dressing changes of Promogran will be initiated today. These dressing changes are to be performed on a daily basis after cleansing and irrigation. The patient will be performing her own dressing changes. As stated above, the patient has been seen in consultation by Dr. Vang after MRI of the right ankle was obtained. I will see Ms. Gonzales again in 2 weeks. At this time, consideration will be given to the initiation of negative pressure therapy if the wound is still present at this time. 2. Rheumatoid arthritis. 3. Lupus. 4. Raynaud's. Job ID: [id number]
[2019-09-25] MEDS ORDERED: Lidocaine 2% PF 5 ML VIAL ONE (17:01)
[2019-09-25] MEDS ORDERED: Sodium Chloride 0.9% 15 ML NEB ONE (17:01)
== END 2019-09-25 08:23 | disposition home or self-care (01) ==
LOC: WCC 08:22
PROVIDERS: ATTEND Family Medicine
DX: L97.319 Non-pressure chronic ulcer of right ankle with unspecified severity (principal); I73.00 Raynaud's syndrome without gangrene; M32.9 Systemic lupus erythematosus, unspecified; M06.9 Rheumatoid arthritis, unspecified
CPT/HCPCS: A4218; J2001

== ENCOUNTER 2019-10-09 09:50 | Outpatient (CLI) | payer MEDICARE, OTHER ==
--- NOTE | 2019-10-09 09:49 | PRG ---
DATE OF SERVICE: 10/09/2019 HISTORY: Ms. Princess Gonzales is a very pleasant 69-year-old, who presents to the Wound Center for evaluation of a wound of the right lateral ankle. Currently, the patient is performing dressing changes of Promogran for the ulceration of her right lateral ankle. MRI of the right lower extremity with and without contrast was obtained, which revealed mild osteitis involving the lateral malleolus, less prominent than on the previous MR of the right ankle from 05/07/2019. No changes suggesting the presence of active osteomyelitis were noted. The patient stated that after MRI was obtained, she was seen by Dr. Vang, who recommended continuation of wound care. PHYSICAL EXAMINATION: VITAL SIGNS: Temperature 97.8, pulse 89, respirations 18, blood pressure 147/63. EXTREMITIES: An ulceration of the right lateral ankle is present, which measures approximately 2.6 x 0.6 cm. Granulation tissue of a poor quality is present within the wound margins. No purulent drainage is associated with the wound. Erythema of the skin surrounding the wound is present. No maceration of the skin of the periwound is noted. No significant edema of the right foot or lower extremity is present on exam today. ASSESSMENT AND PLAN: 1. Right lateral ankle ulceration as described above. Negative pressure therapy will be initiated today with dressing changes of the wound VAC here in the Wound Center. As stated above, the patient has been seen in consultation by Dr. Vang after MRI of the right ankle was obtained. I will see Ms. Gonzales again in 1 week. The patient has also been given a prescription for Keflex 500 mg, #30, one p.o. t.i.d. x10 days. 2. Rheumatoid arthritis. 3. Lupus. 4. Raynaud's. Job ID: [id number]
== END 2019-10-09 09:51 | disposition home or self-care (01) ==
LOC: WCC 09:50
PROVIDERS: ATTEND Family Medicine
DX: T81.89XD Other complications of procedures, not elsewhere classified, subsequent encounter (principal)

== ENCOUNTER 2019-10-23 10:42 | Outpatient (CLI) | payer MEDICARE, OTHER ==
--- NOTE | 2019-10-23 10:12 | PRG ---
DATE OF SERVICE: 10/23/2019 HISTORY: Ms. Princess Gonzales is a very pleasant 69-year-old, who presents to the Wound Center for evaluation of a wound of the right lateral ankle. At the time of the patient's last visit, negative pressure therapy for the right lateral ankle ulceration was initiated. MRI of the right lower extremity with and without contrast was obtained on 09/19/2019, which revealed mild osteitis involving the lateral malleolus, less prominent than on the previous MR of the right ankle from 05/07/2019. No changes suggesting the presence of active osteomyelitis were noted. The patient stated that after MRI was obtained, she was seen by Dr. Vang, who recommended continuation of wound care. PHYSICAL EXAMINATION: VITAL SIGNS: Temperature 97.6, pulse 80, respirations 18, and blood pressure 210/85. EXTREMITIES: An ulceration of the right lateral ankle is present, which measures approximately 3.2 x 0.7 cm. The dimensions of the wound at the time of the patient's visit on 10/09/2019 were approximately 2.6 x 0.6 cm. Granulation tissue is present within the wound margins. Erythema of the skin surrounding the wound is present. No maceration of the skin of the periwound is noted. No significant edema of the right foot or lower extremities appreciated on exam today. ASSESSMENT AND PLAN: 1. Right lateral ankle ulceration as described above. Negative pressure therapy will be continued. The patient states that she has an appointment with Dr. Blanco at [facility] in 4 days. The patient will also be seen by Wound Care at [facility] on the same day. 2. Rheumatoid arthritis. 3. Lupus. 4. Raynaud's. Job ID: [id number]
[2019-10-23] MEDS ORDERED: Sodium Chloride 0.9% 15 ML NEB ONE (13:03)
[2019-10-23] MEDS ORDERED: Lidocaine 2% PF 100 mg/5 ml Syringe ONE (13:03)
== END 2019-10-23 10:43 | disposition home or self-care (01) ==
LOC: WCC 10:42
PROVIDERS: ATTEND Family Medicine
DX: L97.319 Non-pressure chronic ulcer of right ankle with unspecified severity (principal); M06.9 Rheumatoid arthritis, unspecified; I73.00 Raynaud's syndrome without gangrene; M32.9 Systemic lupus erythematosus, unspecified
CPT/HCPCS: A4218; J2001